=== PATIENT | female | born 1975 ===

== ENCOUNTER 2022-01-10 18:41 | Emergency (ER) | payer OTHER, SELFPAY ==
--- NOTE | ~2022-01-10 | XR_ITS ---
XR knee RT min 4V DATE: 01/10/2022 19:07 INDICATION: Right anteromedial knee pain. Patient felt a pop. TECHNIQUE: 4 views COMPARISON: 10/26/2013 bilateral knees views FINDINGS: There is mild suprapatellar knee joint effusion. There is mild periarticular spurring and minimal loss of height at the medial compartment, consistent with osteoarthritis. No fracture or dislocation, periosteal reaction or bone destruction, radiopaque intra-articular loose body or chondrocalcinosis. No periosteal reaction or bone destruction. IMPRESSION: Mild knee joint effusion. Mild osteoarthritis Reviewed, dictated and finalized at location A.
[2022-01-10 18:48] VITALS: BP 152/104; PULSE 91; RESP 16; TEMP 36.8; O2SAT 100
--- NOTE | 2022-01-10 18:49 | ED.LOWEXIN ---
HPI - Extremity Injury (Lower) General Chief Complaint: Extremity Injury, Lower Stated Complaint: right knee pain Time Seen by Provider: 01/10/22 18:49 Source: patient Mode of arrival: ambulatory Limitations: no limitations History of Present Illness HPI Narrative: Ms. Melendez is a 46-year-old female patient presenting to the clinic today with complaints of right knee pain. She reports she was playing horseshoes when her knee popped and she developed pain to the medial knee. She reports that her knee has been swelling and feels as though it is catching if she is walking. She reports that it hurts to fully extend or bend her knee. Pain is worse with ambulation. Related Data Allergies Allergy/AdvReac Type Severity Reaction Status Date / Time codeine Allergy Intermediate Swelling Verified 01/10/22 18:54 morphine Allergy Intermediate Hives Verified 01/10/22 18:54 Penicillins Allergy Intermediate Hives Verified 01/10/22 18:54 tramadol [Ultram] Allergy Intermediate Hives Verified 01/10/22 18:54 Review of Systems Review of Systems: Pertinent positives per HPI. Patient denies any fever, chills, rash, headache, visual changes, dizziness, cough, runny nose, sore throat, shortness of breath, chest pain, palpitations, nausea, vomiting, diarrhea, constipation, abdominal pain, or any urinary issues. PMFSH Social History Social History Smoking status: Former smoker Comments At the time of my signature, I reviewed and agree with the nursing past medical, surgical, social, and family history. There is no relevant family history pertinent to the patient complaint. Exam Narrative: General: Well-developed, well nourished, in no apparent distress Head: Normocephalic, atraumatic. Cardio: Regular rate and rhythm, s1 and s2 normal, no murmur appreciated. Resp: Clear to auscultation bilaterally, no rhonchi, rales, wheezing or rubs. Musculoskeletal: No deformity, mild swelling over the anterior knee when compared to the left knee, there and palpation over the MCL and the anterior medial knee joint, pain with flexion and extension over the MCL and anterior medial knee joint, pain with valgus varus maneuver as well as anterior and posterior drawer sign testing, limited range of motion due to pain, muscle strength strong and equal, peripheral pulse strong, no cyanosis, normal gait and station Course Course Emergency Course: Portions of this record may have been created with voice recognition software. Level of Care: Express Care Visit Vital Signs Vital signs: Vital Signs Temperature 36.8 C 01/10/22 18:48 Pulse Rate 91 01/10/22 18:48 Respiratory Rate 16 01/10/22 18:48 Blood Pressure 152/104 H 01/10/22 18:48 Pulse Oximetry 100 01/10/22 18:48 Oxygen Delivery Room Air 01/10/22 18:48 Temperature 36.8 C 01/10/22 18:48 Pulse Rate 91 01/10/22 18:48 Respiratory Rate 16 01/10/22 18:48 Blood Pressure 152/104 H 01/10/22 18:48 Pulse Oximetry 100 01/10/22 18:48 Oxygen Delivery Room Air 01/10/22 18:48 Vital signs reviewed MDM - Extremity Injury (Lower) MDM Narrative Medical decision making narrative: At the time of visit patient is resting comfortably on the exam table. X-ray was negative for any fracture or malalignment of the right knee. I suspect the patient either has a medial meniscus tear versus a medial collateral ligament strain/tear. I instructed her to wear a hinged knee brace and keep ice on her knee and elevate. Avoid bearing full weight on right knee. Ortho referral given as she does not have a primary care so she can seek an MRI if needed. I will place her on a prescription of naproxen for pain. She is to follow-up with the Ortho as discussed. Supportive measures were discussed with the patient she voiced understanding of discharge instructions and agrees to treatment plan. Discharge Plan Discharge Clinical Impression: Acute
== END 2022-01-10 19:24 | disposition home or self-care (01) ==
PROVIDERS: Emergency Provider Nurse Practitioner Family
DX: M23.91 Unspecified internal derangement of right knee (principal)
CPT/HCPCS: 73564; 99213; G0463

== ENCOUNTER 2025-06-13 09:06 | Emergency (ER) | payer OTHER, SELFPAY ==
[2025-06-13 09:24] VITALS: BP 133/71; PULSE 93; RESP 20; TEMP 36.5; O2SAT 98
--- OUTSIDE RECORDS SUMMARY | 2025-06-13 09:33 | XMS_ITS | Clinical Summary ---
Author Organization [facility] Address [address] [place] [address] Phone Care Team Providers Care Inserter Name Role Phone Provider, None Primary Care Provider Unavailabl e Allergies Active Allergy Reactions Criticality Noted Date Comments Codeine Hives 12/23/2018 Cyclobenzaprine Hives 01/16/2022 Morphine Shortness of Breath 12/23/2018 Penicillins Hives 12/23/2018 Medications ibuprofen (MOTRIN) 800 MG TabletIndicatio ns:Acute pain of right knee Take 1 Tablet by mouth every 8 hours as needed for Moderate or more severe pain. 45 Tablet 2 01/16/2022 Active HYDROcodone-janis taminophen (NORCO) 7.5-325 MG TabletIndicatio ns:Acute pain of right knee Take 1 Tablet by mouth every 6 hours as needed for Moderate or more severe pain. 20 Tablet 01/23/2022 Active meloxicam (MOBIC) 7.5 MG Tablet Take 1 Tablet by mouth daily. 30 Tablet 10/26/2023 Active Active Problems No known active problems Social History Tobacco Use Types Packs/Day Years Used Date Smoking Tobacco: Former Cigarettes Smokeless Tobacco: Never Tobacco Cessation:Counseling Given: Not Answered Alcohol Use Standard Drinks/Week Comments Never 0 (1 standard drink = 0.6 oz pur e alcohol) AUDIT-C Answer Date Recorded Frequency of Alcohol Consumption Never 12/23/2018 Average Number of Drinks Not on file 019 Frequency of Binge Drinking Not on file 12/03 Sexually Active Control Partners Comments Yes None Male Comments No Sex and Gender Information Value Date Recorded Sex Assigned at Not on file Legal Sex Female 11:00 PM CDT Gender Identity Not on file Sexual Orientation Not on file Last Filed Vital Signs Vital Sign Reading Time Taken Comments Blood Pressure 167/85 01/14/2024 10:34 PM CDT Pulse 87 01/14/2024 10:34 PM CDT Temperature 36.1 C (97 F) 01/14/2024 10:34 PM CDT Respiratory Rate 19 01/14/2024 10:34 PM CDT Oxygen Saturation 99% 01/14/2024 10:34 PM CDT Inhaled Oxygen Concentration - - Weight 140.6 kg (310 lb) 01/14/2024 10:34 PM CDT Height 175.3 cm (5' 9) 01/14/2024 10:34 PM CDT Body Mass Index 45.78 01/14/2024 10:34 PM CDT Plan of Treatment Health Maintenance Due Date Last Done Comments Hepatitis C Virus (HCV) Screening 1976 Mammogram 1976 TdaP Immunization 1976 Hepatitis B Immunization (1 of 3 - 19+ 3-dose series) 11/29/1995 Discussion re Starting/Frequency of Mammograms 2016 Cologuard 2021 Colonoscopy 2021 Colorectal Cancer Screening 2021 Immunochemical Fecal Occult Blood 2021 Influenza Immunization (#1) 2025 SARS-COV-2 Immunization ( season) 2025 01/09/2021, 12/18/2020 Respiratory Syncytial Virus (RSV) Immunization (Adult) (1 - 1-dose 75+ series) 11/29/2051 Human Papillomavirus (HPV) Immunization Aged Out No longer eligible b ased on patient's age to complete this topic Meningococcal Immunization (ACWY) Aged Out No longer eligible b ased on patient's age to complete this topic Pneumococcal Immunization Combined Aged Out No longer eligible b ased on patient's age to complete this topic Rotavirus Immunization Aged Out No lo nger eligible based on patient's age to complete this topic Insurance [facility] Care Teams Inserter Relationship Specialty Start Date End Date Provider, None [place] PCP - General 01/14/24
--- NOTE | 2025-06-13 10:01 | ED_ITS ---
HPI - General Adult General Chief complaint: Chest Pain Stated complaint: left side rib injury History of Present Illness HPI narrative: patient is a 49-year-old female, without significant past medical history, presents to urgent care with complaints of left lateral chest wall pain, onset of symptoms approximately 10 days ago when she opened a mattress that was vac sealed under pressure and when opened, pushed her backwards into her wall. She states she had no pain at that time however over the following 3-4 days, she began having some left lateral chest wall pain, which she suspected was musculoskeletal. She took ibuprofen and ice the area off and on but continue to care for her grandchildren and also played pool regularly. She denies difficulty breathing, neck or back pain. She did not fall to the ground during the incident or bluntly strike her chest wall. She denies any additional associated symptoms or modifying factors. Related Data Allergies Allergy/AdvReac Type Severity Reaction Status Date / Time codeine Allergy Intermediate Swelling Verified 06/13/25 09:51 morphine Allergy Intermediate Hives Verified 06/13/25 09:51 Penicillins Allergy Intermediate Hives Verified 06/13/25 09:51 tramadol (Ultram) Allergy Intermediate Hives Verified 06/13/25 09:51 Review of Systems Musculoskeletal: Comments: Refer HPI Exam Const: General: cooperative, healthy appearing, comfortable, no acute distress and well developed Nutritional Appearance: obese Orientation/consciousness: oriented to person, oriented to place, oriented to time and patient oriented x3 Limitations: no limitations HENMT: Head: normal to inspection Ears: hearing grossly normal bilaterally and external ears normal Face/Nose/Sinus: Normal external nose present and Normal nares present Face and sinus: normal facial exam and sinuses nontender Teeth and gingiva: dentition normal and gingiva normal Throat: posterior oropharynx normal, tonsils normal and uvula midline Eyes: General: appearance normal, both eyes and all related structures Visual Armstrong: normal visual armstrong by confrontation Alignment and Position: alignment normal Periorbital: periorbital findings normal Eyelids: eyelids normal Conjunctivae: conjunctivae normal Sclera: sclerae normal Cornea: corneas normal Pupils: Equal, round and reactive pupils present EOM: EOMs intact bilaterally Direct Ophthalmoscopy: normal light reflex and no phot ophobia Neck: Neck: normal visual inspection, full ROM, no lymphadenopathy and no meningeal signs Chest: Other: patient has tender palpation over the left lateral and posterior lateral chest wall, no crepitus, no rash noted. No ecchymoses. Patient is more tender in the intercostal muscle region and over the bony prominences. Lungs are clear throughout Resp: Effort & Inspection: normal respiratory effort Auscultation: clear to auscultation bilaterally Percussion: percussion normal Cardio: Palpation: normal PMI Rate: regular rate Heart sounds: S1 normal heart sound present and S2 normal heart sound present Back/Spine/Pelvis: Back: no CVA tenderness Cervical Spine: normal cervical lordosis Thoracic/Lumbar Spine: thoracic and lumbar spine normal to inspection Skin: General skin exam: normal color Rashes: no rashes Trauma: no lacerations or abrasions Wounds: no wounds Neuro: General: oriented to person, oriented to place, oriented to time, patient oriented x3, gait normal, tone normal, moves all extremities and CN's II-XI intact bilaterally Course Course Emergency Course: patient is tender palpation the chest wall intercostal muscles, no bony tenderness, crepitus or subcutaneous emphysema to suggest significant chest trauma. Plan to treat with a muscle relaxer, NSAIDs and PCP follow-up. Patient is agreeable with plan. Will defer imaging at this time as she did not sustain blunt injury and she has bariatric, limiting diagnostic capability of plain film imaging of the ribs. Patient verbalized understanding she is agreeable discharge plan care Level of Care: Express Care Visit ([id number]) Vital Signs Vital signs: Vital Signs Temperature 36.5 C 06/13/25 09:24 Pulse Rate 93 06/13/25 09:24 Respiratory Rate 20 06/13/25 09:24 Blood Pressure 133/71 06/13/25 09:24 Pulse Oximetry 98 06/13/25 09:24 Oxygen Delivery Room Air 06/13/25 09:24 Temperature 36.5 C 06/13/25 09:24 Pulse Rate 93 06/13/25 09:24 Respiratory Rate 20 06/13/25 09:24 Blood Pressure 133/71 06/13/25 09:24 Pulse Oximetry 98 06/13/25 09:24 Oxygen Delivery Room Air 06/13/25 09:24 Medical Decision Making Vital Signs Vital Signs: Vital Signs Temperature 36.5 C 06/13/25 09:24 Pulse Rate 93 06/13/25 09:24 Respiratory Rate 20 06/13/25 09:24 Blood Pressure 133/71 06/13/25 09:24 Pulse Oximetry 98 06/13/25 09:24 Oxygen Delivery Room Air 06/13/25 09:24 Temperature 36.5 C 06/13/25 09:24 Pulse Rate 93 06/13/25 09:24 Respiratory Rate 20 06/13/25 09:24 Blood Pressure 133/71 06/13/25 09:24 Pulse Oximetry 98 06/13/25 09:24 Oxygen Delivery Room Air 06/13/25 09:24 Discharge Plan Discharge Clinical Impression: Strain of muscle and tendon of back wall of thorax, initial encounter Patient Disposition: Home Condition: Stable Instructions: Antibiotic Form, Thoracic Back Strain (ED) Additional Instructions: REST, ICE, TAKE IBUPROFEN AND ROBAXIN PRESCRIBED. FOLLOW UP CLOSELY WITH YOUR PCP IN 3-5 DAYS IF YOUR SYMPTOMS ARE NOT RESOLVING, SOONER IF CONDITION WORSENS IN ANY WAY Patient Language: Albanian Prescriptions: New methocarbamol 750 mg tablet 750 mg PO QID PRN (Reason: SPASM) Qty: 30 0RF ibuprofen 600 mg tablet 600 mg PO QID PRN (Reason: pain) Qty: 30 0RF Follow-up/Referrals: PHYSICIAN,VOICE INTERCEPT TECHNICIAN [Primary Care Provider, Internal Medicine] Time of Disposition: 10:14
== END 2025-06-13 10:15 | disposition home or self-care (01) ==
PROVIDERS: Emergency Provider Nurse Practitioner Family
DX: S29.012A Strain of muscle and tendon of back wall of thorax, initial encounter (principal); S21.202A Unspecified open wound of left back wall of thorax without penetration into thoracic cavity, initial encounter; W22.09XA Striking against other stationary object, initial encounter
CPT/HCPCS: 99213; G0463